=== PATIENT | female | born 1930 | race Two or more races ===

== ENCOUNTER 2018-01-15 09:55 | Outpatient (RCR) | payer MEDICARE, OTHER | END 2018-02-05 | disposition home or self-care (01) | LOC: WCC 09:55 | DX: L97.812 Non-pressure chronic ulcer of other part of right lower leg with fat layer exposed (principal); I87.311 Chronic venous hypertension (idiopathic) with ulcer of right lower extremity; Z85.828 Personal history of other malignant neoplasm of skin; I10 Essential (primary) hypertension | CPT/HCPCS: 11042; 29580; 29581; G0463 ==